=== PATIENT | female | born 1950 | race Caucasian/White ===

== ENCOUNTER 2024-12-23 17:12 | Emergency (ER) | payer OTHER ==
[~2024-12-23] VITALS: Ht 162.6 cm; Wt 64.9 kg
[2024-12-23] MEDS ORDERED: SIMV5TAB59 PO (18:04)
[2024-12-23] MEDS ORDERED: LEVO25TA9 PO (18:04)
[2024-12-23] MEDS ORDERED: ACETAMINOPHEN 500 MG TABLET ONE (18:38)
[2024-12-23] MEDS: ACETAMINOPHEN 500 MG TABLET PO ONE (18:42)
[2024-12-23] MEDS ORDERED: ONDANSETRON 4 MG/2 ML VIAL ONE (19:09)
[2024-12-23] MEDS ORDERED: MORPHINE SULFATE 4 MG/1 ML DISP.SYRIN ONE (19:10)
[2024-12-23] MEDS: IV NORMAL SALINE 500 ML IV ONE (19:18)
[2024-12-23] MEDS: MORPHINE SULFATE 4 MG/1 ML DISP.SYRIN IV ONE (19:19)
[2024-12-23] MEDS: ONDANSETRON 4 MG/2 ML VIAL IV ONE (19:20)
[2024-12-23 19:40] LABS: PLATELET COUNT (AUTO) 314 K/uL (179-408); RED BLOOD CELL COUNT(AUTO) 4.43 MIL/uL (3.63-4.92); RED CELL DISTRIBUTION WIDTH 13.5 % (12.3-17.7); WHITE BLOOD COUNT (AUTO) 8.4 K/uL (3.8-11.8)
[2024-12-23 19:50] LABS: CREATININE 0.4 mg/dL (0.6-1.3); SODIUM SERUM 142 mmol/L (136-145); UREA NITROGEN, BLOOD 17 mg/dL (7-18)
[2024-12-23 19:56] LABS: ASPARTATE AMINOTRANSFERASE 14 U/L (15-37); TOTAL PROTEIN, SERUM 7.2 g/dL (6.4-8.2)
[2024-12-23 21:33] VITALS: BP 137/75
[2024-12-23] MEDS ORDERED: POTASSIUM CHLORIDE 20 MEQ TAB.PRT.SR ONE (22:49)
[2024-12-23] MEDS: POTASSIUM CHLORIDE 20 MEQ TAB.PRT.SR PO ONE (22:52)
[2024-12-23] MEDS ORDERED: ONDA4TAB11 PO (23:07)
[2024-12-23 23:25] VITALS: BP 132/70; TEMP 98; O2SAT 95
== END 2024-12-23 23:25 | disposition home or self-care (01) ==
LOC: ER 17:28
DX: S06.0X0A Concussion without loss of consciousness, initial encounter (principal); S16.1XXA Strain of muscle, fascia and tendon at neck level, initial encounter; S39.012A Strain of muscle, fascia and tendon of lower back, initial encounter; S29.012A Strain of muscle and tendon of back wall of thorax, initial encounter; S76.012A Strain of muscle, fascia and tendon of left hip, initial encounter; E87.6 Hypokalemia; R11.0 Nausea; R41.82 Altered mental status, unspecified; R07.9 Chest pain, unspecified; R03.0 Elevated blood-pressure reading, without diagnosis of hypertension; R51.9 Headache, unspecified; E03.9 Hypothyroidism, unspecified; E78.5 Hyperlipidemia, unspecified; V43.52XA Car driver injured in collision with other type car in traffic accident, initial encounter; Y93.89 Activity, other specified; Y92.488 Other paved roadways as the place of occurrence of the external cause; Y99.8 Other external cause status
CPT/HCPCS: 99285; 70450; 96374; 96361; 96375; 80053; 85025; 85730; 84484; 36415; 71250; 72125; 72128; 72131; 74176; J2405; J2270; J7040; A4606; A4663; A9150